=== PATIENT | male | born 1970 | race Two or more races ===

== ENCOUNTER → 2020-11-02 | Day surgery (SDC) | payer OTHER ==
[~2020-11-02] VITALS: Ht 162.6 cm; Wt 83.0 kg
[~2020-11-02] MED LIST: AMLO-496 PO; CIPR500T4 PO; CIPROFLOXACIN 400MG/200ML 0 ML IV ONE; FLUC200T50 PO; HYDR1TAB97 PO; INSU1INJ19 SC; LEVO750T8 PO; LIDOCAINE 2% JELLY 11ml (GLYDO) ONE; REPA2TAB8 PO; SODI650T PO
== END | disposition home or self-care (01) ==
LOC: SUR 06:08
PROVIDERS: ATTEND Urology
DX: Z01.818 Encounter for other preprocedural examination (principal); R33.9 Retention of urine, unspecified; Z20.822 Contact with and (suspected) exposure to COVID-19
CPT/HCPCS: 82962; U0003